=== PATIENT | male | born 1985 ===

== ENCOUNTER 2017-12-20 06:36 | Emergency (ER) | payer OTHER ==
[~2017-12-20] VITALS: Ht 177.8 cm; Wt 92.0 kg
[2017-12-20 06:42] VITALS: BP 150/91
== END 2017-12-20 07:04 | disposition left against medical advice (07) ==
LOC: ED 07:00
DX: F10.20 Alcohol dependence, uncomplicated (principal); Z53.21 Procedure and treatment not carried out due to patient leaving prior to being seen by health care provider